=== PATIENT | female | born 1950 | race Caucasian/White ===

== ENCOUNTER 2022-11-07 15:14 | Emergency (ER) | payer OTHER, SELFPAY ==
[2022-11-07 15:15] VITALS: BP 183/57; PULSE 84; RESP 16; TEMP 36.4; O2SAT 98; BMI 21.6
--- NOTE | 2022-11-07 15:31 | EKG12_ITS ---
Test Reason : Blood Pressure : / mmHG Vent. Rate : 077 BPM Atrial Rate : 077 BPM P-R Int : 166 ms QRS Dur : 084 ms QT Int : 382 ms P-R-T Axes : 071 012 043 degrees QTc Int : 432 ms Normal sinus rhythm Normal ECG Confirmed by CASANDRA NI, GENTRY ([id number]), web editor ANNAMARIA CASILLAS ([id number]) on 11/10/2022 10:27:09 AM Referred By: VIKTORIA Confirmed By:GENTRY GUAJARDO MD
--- NOTE | 2022-11-07 15:32 | EDS_ITS ---
HPI History of Present Illness Chief Complaint: Abd Pain Informant: patient Onset/Context/Timing Onset: Days (4 days) Context: Gradual Onset Timing: Waxes and wanes Current Severity: Mild Maximum Severity: Moderate Narrative Narrative: Patient presents with a 4-day history of waxing and waning epigastric pain/pressure. She reports having a lot of gas both belching and passing from her rectum. She reports intermittent nausea and vomiting and today has been unable to keep anything down. She reports having some intermittent chills but did not measure her temperature. PFSH PFSH Medical History no medical history no medical history Home Medications promethazine 25 mg tablet 25 mg PO TID PRN nausea and vomiting #14 tabs 12/01/19 [Rx Last Taken Unknown] omeprazole magnesium 20 mg tablet,delayed release (Prilosec OTC) 20 mg PO DAILY #20 tabs 11/07/22 [Rx Last Taken Unknown] ondansetron 4 mg disintegrating tablet 4 mg PO Q8H PRN nausea and vomiting #10 tabs 11/07/22 [Rx Last Taken Unknown] Allergy/AdvReac Type Severity Reaction Status Date / Time No Known Allergies Allergy Verified 11/07/22 15:15 Surgical History History of Social History Smoking Status: Never smoker alcohol intake: never ROS ROS ED Constitutional Constitutional ED: Reports chills; Denies fever(s) Eyes Eyes: Denies change in vision or discharge from eye(s) ENT ENT ED: Denies discharge from eye(s), rhinorrhea or sore throat Cardiovascular Cardiovascular: Denies chest pain or palpitations Respiratory/Chest Respiratory/Chest: Denies cough or dyspnea Gastrointestinal Gastrointestinal: Reports abdominal pain, nausea and vomiting; Denies diarrhea Genitourinary Genitourinary ED: Denies difficulty urinating or dysuria Musculoskeletal Musculoskeletal: Denies back pain or extremity pain Integumentary Denies Abrasions or rash Neurologic Neurologic: Denies headache(s) or weakness Psychiatric Psychiatric: Denies anxiety or depression Allergic/Immunologic Allergic/Immunologic ED: Denies lip swelling or urticaria EXAM Physical Exam Const Vital Signs: 11/07/22 15:15 Temperature 97.6 F L Temperature Source Temporal Pulse Rate 84 Respiratory Rate 16 Blood Pressure 183/57 H Blood Pressure Mean 99 Pulse Ox 98 Oxygen Delivery Method Room Air Positive well nourished and well developed General Appearance ED: well developed HEENT Reports normocephalic and head/scalp atraumatic Eyes PERRL and EOMs intact bilaterally Neck supple Chest Wall inspection of chest normal and palpation of chest normal Resp normal respiratory effort and clear to auscultation bilaterally Cardio regular rate and regular rhythm GI GI Narrative: Mild epigastric tenderness palpation. No guarding or rebound. Hypoactive bowel sounds are present. Palpation: soft Extremity normal to inspection Neuro oriented x3 and no sensory deficits noted Sensorium / Orientation: alert Motor Exam: strength 5/5 throughout Psych mental status grossly normal Skin no rashes or lesions noted MDM MDM MDM Narrative Medical decision making narrative: Patient given IV fluids along with a dose of Zofran and Protonix. Lab work obtained along with EKG. Lab Data Attestation: I reviewed the patient's lab results. Labs: Laboratory Results - last 24 hr 11/07/22 11/07/22 15:46 15:46 WBC 5.7 RBC 4.60 Hgb 13.7 Hct 41.1 MCV 89.3 MCH 29.8 MCHC 33.3 RDW Std Deviation 39.7 RDW Coeff of Yue 12.2 Plt Count 200 MPV 10.2 Immature Gran % (Auto) 0.400 Neut % (Auto) 79.7 H Lymph % (Auto) 15.1 L [place] % (Auto) 4.2 Eos % (Auto) 0.2 Baso % (Auto) 0.4 Absolute Neuts (auto) 4.6 Absolute Lymphs (auto) 0.86 Nucleated RBC % 0 Sodium 137 Potassium 3.7 Chloride 103 Carbon Dioxide 27.0 Anion Gap 7 BUN 8 Creatinine 0.61 Estim Creat Clear Calc 50.91 Est GFR (MDRD) Af Amer 125 Est GFR (MDRD) Non-Af 103 BUN/Creatinine Ratio 13.2 Glucose 121 H Calcium 9.1 Total Bilirubin 0.90 Direct Bilirubin 0.23 AST 29 ALT 45 Alkaline Phosphatase 56 Troponin I High Sens 16 Total Protein 7.8 Albumin 4.0 Globulin 3.8 Lipase 119 EKG Initial EKG: Attestation: I personally reviewed and interpreted this EKG as follows: Interpretation: Sinus Rhythm (Sinus at 77 with no acute ischemia.) Treatment and Re-Evaluation Narrative: Patient has focal epigastric pain. Lab work was obtained to ensure no acute abnormalities in blood work including evidence of cholecystitis or pancreatitis. EKG and troponin were obtained to ensure no atypical presentation of cardiac disease. Repeat evaluation patient resting comfortably. Nausea is improved. CBC is unremarkable. Chemistry studies are normal. LFTs and lipase normal. Troponin is normal at 16. EKG reveals no evidence of acute ischemia. Given the patient's symptoms I do believe she likely has gastritis or possibly an early ulcer. She will be treated with Prilosec and Zofran. Discharge Plan Triage Chief Complaint: Abd Pain ED Provider: Serina Oviedo Dx/Rx/DC Orders Clinical Impression: Gastritis, Nausea & vomiting Instructions: ED Gastritis (Adult), ED Vomiting (Adult) Prescriptions: New ondansetron 4 mg tablet,disintegrating 4 mg PO Q8H PRN (Reason: nausea and vomiting) Qty: 10 0RF omeprazole magnesium [Prilosec OTC] 20 mg tablet,delayed release (DR/EC) 20 mg PO DAILY Qty: 20 0RF No Action promethazine 25 mg tablet 25 mg PO TID PRN (Reason: nausea and vomiting) Qty: 14 0RF Primary Care Provider: Care Physician,No Primary Referrals: Anthony Cornejo MD [Med Staff - Insulation Technician] - 1-2 Weeks Care Physician,No Primary [Primary Care Provider] - Disposition Disposition: Home, Self Care
[2022-11-07] MEDS: Ondansetron 4 MG/2 ML Vial IV (15:48)
[2022-11-07] MEDS: 0.9% Normal Saline 1,000 ML 150 ML IV (15:51)
[2022-11-07 16:08] LABS: Absolute Lymphocyte Count 0.86 X10^3/uL (0.83-4.51); Absolute Neutrophil Count 4.6 X10^3/uL (2.0-7.7); Basophil# 0.02 X10^3/uL; Basophil% 0.4 % (0-1); Eosinophil# 0.01 X10^3/uL; Eosinophils% 0.2 % (0-5); Hematocrit 41.1 % (37-47); Hemoglobin 13.7 g/dL (12.0-15.0); Lymphocyte # 0.86 X10^3/ul (0.83-4.51); Lymphocyte % 15.1 % (19-41); Mean Corp Hgb Conc 33.3 g/dL (32-36); Mean Corpuscular Hgb 29.8 pg (27.0-32.0); Mean Corpuscular Volume 89.3 fL (81-99); Mean Platelet Vol. 10.2 fl (6.2-12.0); Monocyte# 0.24 X10^3/uL; Monocyte% 4.2 % (0-10); NRBC Flagged by Analyzer 0 % (0-5); Neutrophil # 4.55 X10^3/uL (2.7-7.7); Neutrophil % 79.7 % (47-70); Platelet Count 200 K/mm3 (150-450); RBC Distribution Width CV 12.2 % (11.6-14.6); RBC Distribution Width SD 39.7 fl (35.1-43.9); White Blood Count 5.7 K/mm3 (4.4-11.0)
[2022-11-07 16:32] LABS: AST(SGOT) 29 U/L (15-37); Alanine Aminotransfer ALT/SGPT 45 U/L (13-56); Alkaline Phosphatase 56 U/L (45-117); Anion Gap 7 (5-15); BUN 8 mg/dL (7-18); BUN/Creat Ratio 13.2 RATIO (10-20); Bilirubin, Direct 0.23 mg/dL (0.00-0.30); Calcium,Total 9.1 mg/dL (8.5-10.1); Chloride 103 mmol/L (98-107); Creatinine, Serum 0.61 mg/dL (0.55-1.02); EST Glomerular Filtration Rate 103 mL/min (>60); Est Glom Filt Rate - Afr Amer 125 mL/min (>60); Estimated Creatinine Clearance 50.91 ml/min; Globulin 3.8 g/dL (2.2-4.2); Glucose 121 mg/dL (74-106); Lipase 119 U/L (73-393); Potassium 3.7 mmol/L (3.5-5.1); Protein, Total 7.8 g/dL (6.4-8.2); Sodium Level 137 mmol/L (136-145); Troponin-I HS 16 pg/mL (3.0-54.0)
[2022-11-07 17:04] VITALS: BP 148/45; PULSE 78; RESP 16; O2SAT 98
== END 2022-11-07 17:04 | disposition home or self-care (01) ==
PROVIDERS: Emergency Provider Emergency Medicine; Visit Provider Emergency Medicine
DX: K29.70 Gastritis, unspecified, without bleeding (principal); R11.2 Nausea with vomiting, unspecified
CPT/HCPCS: 80048; 80076; 83690; 84484; 85025; 93005; 96365; 96375; 99283; J7030; A4216; J2405

== ENCOUNTER 2023-05-03 08:28 | Emergency (ER) | payer OTHER, SELFPAY ==
[2023-05-03 08:30] VITALS: BP 157/73; PULSE 69; RESP 18; TEMP 35.8; O2SAT 100; BMI 21.7
--- NOTE | 2023-05-03 08:43 | CT_ITS ---
INDICATION: Weakness EXAMINATION: CT BRAIN - CT Head or Brain W/O Contrast Injection TECHNIQUE: Multiple axial images were obtained of the head without intravenous contrast. A radiation dose optimization technique was used for this scan. IV Contrast dosage and agent: None. RADIATION DOSAGE (If Supplied By Facility): CTDIvol = ( 44.99 ) mGy, DLP = ( 779.24 ) mGycm COMPARISON: No prior examinations are available for comparison. FINDINGS: BRAIN PARENCHYMA: No intra- or extra-axial hemorrhage. No evidence of acute infarct. No intracranial mass or mass effect. There is preservation of the raines/white matter interface. Small low-density area in the inferior left basal ganglia prominent vascular space. Small dural based) calcification. Posterior fossa structures are unremarkable. CSF SPACES: Appropriate for age. No hydrocephalus. Basal cisterns are patent. CALVARIUM, SKULL BASE, PARANASAL SINUSES AND MASTOID AIR CELLS: Clear. No discrete lytic or blastic abnormalities. ORBITS: The globes are grossly intact. ASPECTS Score for Acute Strokes: 10 CT/Brain/Head without Contrast IMPRESSION: Negative Brain CT without contrast. Electronically Signed: Deng Velasquez MD at 10:26 EDT ,
--- NOTE | 2023-05-03 08:44 | EX.ED.DYSGE1 ---
HPI History of Present Illness Chief Complaint: Fatigue Informant: patient and spouse/S.O. Narrative Narrative: Patient had an episode at home where she felt lightheaded as if she might pass out. She may have had some component of balance. No chest pain or palpitations. No focal weakness. She states she just feels generally kind of weak and tired now. No lateralizing symptoms. She did not have nausea and vomiting. After the event she was passing a lot of gas but has no abdominal pain. She has had no diarrhea. She has not been sick recently. She felt well when she got up. She does feel better now. She was getting ready for [employer] when this happened. She has no chronic medical conditions No routine medications No allergies Past surgery was Non-smoker nondrinker lives at [facility] Home Medications promethazine 25 mg tablet 25 mg PO TID PRN nausea and vomiting #14 tabs 12/01/19 [Rx Last Taken Unknown] omeprazole magnesium 20 mg tablet,delayed release (Prilosec OTC) 20 mg PO DAILY #20 tabs 11/07/22 [Rx Last Taken Unknown] ondansetron 4 mg disintegrating tablet 4 mg PO Q8H PRN nausea and vomiting #10 tabs 11/07/22 [Rx Last Taken Unknown] Allergy/AdvReac Type Severity Reaction Status Date / Time No Known Allergies Allergy Verified 11/07/22 15:15 Surgical History History of Social History Smoking Status: Never smoker alcohol intake: never ROS ROS ED ROS Narrative A complete review of systems was performed and is negative except as documented in the history of present illness. Some specific details below. Constitutional: No recent fevers or chills. No rigors. Patient has not generally felt ill. EYE: No discharge, visual complaints, or pain. No darkening of vision or portions of aging missing. No bright lights seen. ENT: No difficulty swallowing. No swelling. No sinus pressure or pain. No nasal discharge. No change in hearing. No ear pain. CV: No chest pain, pressure or aching. No palpitations or irregular beats. Patient did feel a little bit presyncopal but did not actually pass out. Respiratory: No trouble breathing. No cough. No wheezing. No sputum production. No pain with breathing. GI: No abdominal pain. No nausea vomiting diarrhea. No blood in stool. : No frequency dysuria or hematuria. Musculoskeletal: No recent trauma. No pains. No swelling. Skin: No rash. Nondiaphoretic now or during event. Neuro: No focal weakness or numbness. He does feel just globally weak at this time. No difficulty with speaking. No difficulty understanding speech. No visual loss. Please see history of present illness also. Endocrine: No polyuria or polydipsia. EXAM Physical Exam Narrative Exam Narrative: CONSTITUTIONAL: Patient is nontoxic in appearance. The patient looks comfortable. Work of breathing looks normal. Color looks normal. HEENT: No notable trauma. Mucous membranes look minimally dry. No sinus tenderness. EYES: No conjunctival injection. No proptosis. No pain with range of motion or limitation of range of motion. No pallor. NECK: No meningismus. No JVD. CARDIOVASCULAR: Regular rate. Regular rhythm. No notable murmur. No JVD. I hear no ectopy. She appears to have a normal sinus rhythm on the monitor with a rate of about 65. No ectopy is seen. RESPIRATORY: No respiratory distress. Breathing is unlabored. No wheezes. No rhonchi. No rales. No pain with a deep breath. Saturations are normal at 100% on room air showing no hypoxia. GASTROINTESTINAL: Not distended. Bowel sounds are normal. No tenderness. No guarding. No rebound. No palpable mass. No bruit. GENITOURINARY: No tenderness over the bladder. No CVA tenderness. MUSCULOSKELETAL: Atraumatic. No peripheral edema. No cord. No tenderness along the deep venous system. No asymmetry. NEUROLOGICAL: Patient is alert and oriented. No focal deficit noted. NIH stroke scale is 0. She can turn left right up and down. There is no actual dizziness or spinning sensation. There is no discoordination. Her only symptom is just feeling overall weak. She does not feel like she is going to pass out now though. Her symptoms are better than they were at home. SKIN: No noted rashes. No diaphoresis. No vesicles noted. No notable pallor. PSYCHIATRIC: Patient is calm. Mood is appropriate. Const Vital Signs: 05/03/23 08:30 05/03/23 09:39 05/03/23 09:39 Temperature 96.4 F L Temperature Source Temporal Pulse Rate 69 59 L Respiratory Rate 18 13 Respiratory Effort Normal Non-Labored Respiratory Pattern Normal Blood Pressure 157/73 H 177/57 H Blood Pressure Mean 101 97 Pulse Ox 100 96 Oxygen Delivery Method Room Air Room Air MDM MDM MDM Narrative Medical decision making narrative: Patient CBC shows no marked abnormalities. She had minimal decreased white count which is nonspecific. This could be related to a viral illness also. Patient's electrolytes show no acute process. Patient's troponin is negative. My independent interpretation of the patient's CT of the head without contrast shows no mass or acute process. No bleeding or obvious stroke. Final reading is negative CT of the brain without contrast. Patient walked. She is stable and steady. She states she just feels like she has low energy and is a little bit weak. Its not focal weakness. Its not vertigo. Its not instability or discoordination. It certainly possible she may have a early viral illness. With the overall sense of weakness and slight low white count this does support that. But at this point she is relatively lower risk for stroke. She has no symptom that matches stroke. Her CT is normal. Her only symptom here is that she just feels a little bit weak. They want to go home and I think that is reasonable. We did discuss reasons to return. Lab Data Attestation: I reviewed the patient's lab results. Labs: Laboratory Results - last 24 hr 05/03/23 09:17 WBC 4.1 L RBC 4.38 Hgb 13.2 Hct 39.6 MCV 90.4 MCH 30.1 MCHC 33.3 RDW Std Deviation 41.2 RDW Coeff of Yue 12.4 Plt Count 178 MPV 10.0 Immature Gran % (Auto) 0.200 Neut % (Auto) 66.3 Lymph % (Auto) 24.5 [place] % (Auto) 7.3 Eos % (Auto) 1.0 Baso % (Auto) 0.7 Absolute Neuts (auto) 2.7 Absolute Lymphs (auto) 1.01 Nucleated RBC % 0 Sodium 139 Potassium 4.2 Chloride 108 H Carbon Dioxide 28.0 Anion Gap 3 L BUN 11 Creatinine 0.78 Estim Creat Clear Calc 50.18 Est GFR (MDRD) Af Amer 94 Est GFR (MDRD) Non-Af 78 BUN/Creatinine Ratio 14.2 Glucose 108 H Calcium 9.0 Troponin I High Sens 4 Radiography Diagnostic Testing: Clinical Impression(s) from Imaging Studies Brain CT 05/03/23 08:43 IMPRESSION: Negative Brain CT without contrast. Electronically Signed: Deng Velasquez MD at 10:26 EDT , Chest X-Ray 05/03/23 09:38 IMPRESSION: No radiographic evidence of acute cardiopulmonary disease. Electronically Signed: Deng Velasquez MD at 10:27 EDT , EKG Initial EKG: Comments: I independent interpretation the patient's EKG done for generalized weakness shows normal sinus rhythm with a rate of about 59. No ectopy. No acute ST elevation or depression. CT interval, QRS duration and QTc are normal. Discharge Plan Triage Chief Complaint: Fatigue ED Provider: Seth Walsh Dx/Rx/DC Orders Clinical Impression: Generalized weakness, Leukopenia Instructions: ED Weakness (Uncertain Cause) Prescriptions: No Action promethazine 25 mg tablet 25 mg PO TID PRN (Reason: nausea and vomiting) Qty: 14 0RF ondansetron 4 mg tablet,disintegrating 4 mg PO Q8H PRN (Reason: nausea and vomiting) Qty: 10 0RF omeprazole magnesium [Prilosec OTC] 20 mg tablet,delayed release (DR/EC) 20 mg PO DAILY Qty: 20 0RF Primary Care Provider: Care Physician,No Primary Referrals: Latasha Reid MD [Med Staff - Medical Corps Officer] - 3-5 Days if not improving Care Physician,No Primary [Primary Care Provider] - Activity Restrictions/Additional Instructions: Follow-up with your primary physician or referral as above. Disposition Disposition: Home, Self Care
[2023-05-03 09:27] LABS: Absolute Lymphocyte Count 1.01 X10^3/uL (0.83-4.51); Absolute Neutrophil Count 2.7 X10^3/uL (2.0-7.7); Basophil# 0.03 X10^3/uL; Basophil% 0.7 % (0-1); Eosinophil# 0.04 X10^3/uL; Hematocrit 39.6 % (37-47); Hemoglobin 13.2 g/dL (12.0-15.0); Lymphocyte # 1.01 X10^3/ul (0.83-4.51); Lymphocyte % 24.5 % (19-41); Mean Corp Hgb Conc 33.3 g/dL (32-36); Mean Corpuscular Hgb 30.1 pg (27.0-32.0); Mean Corpuscular Volume 90.4 fL (81-99); Monocyte% 7.3 % (0-10); NRBC Flagged by Analyzer 0 % (0-5); Neutrophil # 2.73 X10^3/uL (2.7-7.7); Neutrophil % 66.3 % (47-70); Platelet Count 178 K/mm3 (150-450); RBC Distribution Width CV 12.4 % (11.6-14.6); RBC Distribution Width SD 41.2 fl (35.1-43.9); Red Blood Count 4.38 M/mm3 (4.2-5.4); White Blood Count 4.1 K/mm3 (4.4-11.0)
--- NOTE | 2023-05-03 09:38 | RAD_ITS ---
INDICATION: Weakness. EXAMINATION/TECHNIQUE: X-RAY - XR Chest 1 View COMPARISON: No prior examinations are available for comparison. FINDINGS: LINES/DEVICES: None. LUNGS: No consolidation, edema or effusion. No pneumothorax. MEDIASTINUM AND CARDIOVASCULAR STRUCTURES: Cardiac silhouette not enlarged. Central airways and mediastinal contour are unremarkable. BONES AND SOFT TISSUES: Unremarkable. RAD/Chest 1 View (Portable) IMPRESSION: No radiographic evidence of acute cardiopulmonary disease. Electronically Signed: Deng Velasquez MD at 10:27 EDT ,
[2023-05-03 09:39] VITALS: BP 177/57; PULSE 59; RESP 13; O2SAT 96
[2023-05-03] MEDS: 0.9% Normal Saline 1,000 ML 1000 ML IV (09:48)
[2023-05-03 09:56] LABS: Anion Gap 3 (5-15); BUN 11 mg/dL (7-18); BUN/Creat Ratio 14.2 RATIO (10-20); Chloride 108 mmol/L (98-107); Creatinine, Serum 0.78 mg/dL (0.55-1.02); EST Glomerular Filtration Rate 78 mL/min (>60); Est Glom Filt Rate - Afr Amer 94 mL/min (>60); Estimated Creatinine Clearance 50.18 ml/min; Glucose 108 mg/dL (74-106); Potassium 4.2 mmol/L (3.5-5.1); Sodium Level 139 mmol/L (136-145); Troponin-I HS 4 pg/mL (3.0-54.0)
[2023-05-03 11:18] VITALS: O2SAT 99
== END 2023-05-03 12:59 | disposition home or self-care (01) ==
PROVIDERS: Emergency Provider Emergency Medicine; Visit Provider Emergency Medicine
DX: R53.83 Other fatigue (principal); R53.1 Weakness; D72.819 Decreased white blood cell count, unspecified
CPT/HCPCS: 70450; 71045; 80048; 84484; 85025; 93005; 96360; 99284; J7030

== ENCOUNTER 2023-11-24 05:48 | Emergency (ER) | payer OTHER, SELFPAY ==
[2023-11-24 05:48] VITALS: BP 187/59; PULSE 68; RESP 16; TEMP 36.9; O2SAT 98
--- NOTE | 2023-11-24 06:13 | EDS_ITS ---
HPI HPI - GI History of Present Illness Chief Complaint: Nausea/Vomiting/Diarrhea Informant: patient and spouse/S.O. Nausea/Vomiting/Emesis GI Symptom: Positive for Nausea and Vomiting Onset: Yesterday Quality: Positive for Nonbilious Severity: Severe Diarrhea/Melena/Hematochezia GI Symptom: Positive for Diarrhea; Negative for Melena or Hematochezia Onset: Yesterday Stool Quality: Positive for Loose and Watery Episodes: 10 Associated Symptoms Associated Symptoms: Negative for Dysuria, Frequency or Hematuria Narrative Narrative: Patient states since yesterday afternoon, for about the past 12-15 hours, she has been having nausea, vomiting, diarrhea. No hematochezia or hematemesis. No melena. No fevers or chills that she knows of, just feeling malaise and fatigue. No known sick contacts, no one else in the household is ill right now. No travel out of the area/region. No recent antibiotics for anything. No history of C. difficile. No suspicious food intake. She states for the day or 2 prior to this, she was having some intermittent lower abdominal cramping and gas but since the vomiting and diarrhea started, she has had no abdominal pain. She denies any cough or shortness of breath or chest discomfort. She has been urinating without any issues. Denies any associated back pain or other associated symptoms. PFSH PFSH Medical History no medical history no medical history Home Medications promethazine 25 mg tablet 25 mg PO TID PRN nausea and vomiting #14 tabs 12/01/19 [Rx Last Taken Unknown] omeprazole magnesium 20 mg tablet,delayed release (Prilosec OTC) 20 mg PO DAILY #20 tabs 11/07/22 [Rx Last Taken Unknown] ondansetron 4 mg disintegrating tablet 4 mg PO Q8H PRN nausea and vomiting #10 tabs 11/07/22 [Rx Last Taken Unknown] ondansetron 4 mg disintegrating tablet 8 mg (2 x 4 mg) PO Q8H PRN PRN Nausea #20 tabs 11/24/23 [Rx Last Taken Unknown] Allergy/AdvReac Type Severity Reaction Status Date / Time No Known Allergies Allergy Verified 11/24/23 05:49 Surgical History History of Social History Smoking Status: Never smoker alcohol intake: never ROS ROS ED Constitutional Constitutional ED: Reports malaise; Denies chills or fever(s) Eyes Eyes: Denies change in vision or diplopia ENT ENT ED: Denies rhinorrhea or sore throat Cardiovascular Cardiovascular: Denies chest pain or palpitations Respiratory/Chest Respiratory/Chest: Denies cough or dyspnea Gastrointestinal Gastrointestinal: Reports diarrhea, nausea and vomiting; Denies abdominal pain or melena Genitourinary Genitourinary ED: Denies dysuria or hematuria Musculoskeletal Musculoskeletal: Denies back pain or neck pain Integumentary Denies abscess or rash Neurologic Neurologic: Denies headache(s), paresthesias or weakness Psychiatric Psychiatric: Denies anxiety or suicidal thoughts EXAM Physical Exam Const Vital Signs: 11/24/23 05:48 11/24/23 06:31 11/24/23 07:01 Temperature 98.4 F Temperature Source Temporal Pulse Rate 68 79 Respiratory Rate 16 17 Blood Pressure 187/59 H 171/59 H 150/64 H Blood Pressure Mean 101 96 92 Pulse Ox 98 98 Oxygen Delivery Method Room Air Room Air Positive well nourished and well developed General Appearance ED: well developed and NAD HEENT Reports moist mucous membranes normocephalic and atraumatic Eyes PERRL and EOMs intact bilaterally Neck full ROM and supple Resp normal respiratory effort and clear to auscultation bilaterally Cardio regular rate, regular rhythm and no murmurs GI non-tender and non-distended Auscultation: hyperactive bowel sounds Palpation: soft Back/Spine no CVA tenderness General Back: other FROM Extremity normal to inspection General Extremety ED: Negative for edema, pulses abnormal or tenderness General Extremity: Negative for edema or pulses abnormal Neuro oriented x3, CN's II-XII intact bilaterally and no sensory deficits noted Sensorium / Orientation: awake and alert Motor Exam: strength 5/5 throughout Skin no rashes or lesions noted and no wounds MDM MDM MDM Narrative Medical decision making narrative: Labs are very reassuring, she does have a mild hyponatremia and hypokalemia likely due to mild dehydration and GI losses. She was given a liter of saline and Zofran and felt much better on reevaluation. No abdominal pain very benign abdomen. Her initial blood pressure was 187/59, on reevaluation after feeling better 150/64 and the rest of her vital signs are normal. She is tolerating oral fluids, prescribe Zofran for what is most likely a viral gastroenteritis. She has no significant risk factors for bacterial etiology right now nor is she having any concerning clinical red flags such as pain, hematochezia. Therefore at this time I recommend supportive care and close outpatient follow-up as needed. She is comfortable with that plan. Lab Data Attestation: I reviewed the patient's lab results. Labs: Laboratory Results - last 24 hr 11/24/23 06:27 WBC 5.7 RBC 4.31 Hgb 12.9 Hct 36.5 L MCV 84.7 MCH 29.9 MCHC 35.3 RDW Std Deviation 36.4 RDW Coeff of Yue 11.9 Plt Count 192 MPV 9.6 Immature Gran % (Auto) 0.400 Neut % (Auto) 70.5 H Lymph % (Auto) 22.8 [place] % (Auto) 5.6 Eos % (Auto) 0.2 Baso % (Auto) 0.5 Absolute Neuts (auto) 4.0 Absolute Lymphs (auto) 1.30 Nucleated RBC % 0 Sodium 127 L Potassium 3.4 L Chloride 97 L Carbon Dioxide 24.0 Anion Gap 6 BUN 6 L Creatinine 0.46 L Est GFR (MDRD) Af Amer 172 Est GFR (MDRD) Non-Af 142 BUN/Creatinine Ratio 13.1 Glucose 114 H Calcium 8.8 Discharge Plan Triage Chief Complaint: Nausea/Vomiting/Diarrhea ED Provider: Jose Slade Dx/Rx/DC Orders Clinical Impression: Gastroenteritis, Mild dehydration Instructions: Viral Gastroenteritis Prescriptions: New ondansetron [ondansetron] 4 mg tablet,disintegrating 8 mg PO Q8H PRN PRN (Reason: Nausea) Qty: 20 0RF Continued omeprazole magnesium [Prilosec OTC] 20 mg tablet,delayed release (DR/EC) 20 mg PO DAILY Qty: 20 0RF No Action promethazine 25 mg tablet 25 mg PO TID PRN (Reason: nausea and vomiting) Qty: 14 0RF ondansetron 4 mg tablet,disintegrating 4 mg PO Q8H PRN (Reason: nausea and vomiting) Qty: 10 0RF Primary Care Provider: Care Physician,No Primary Referrals: Doctor,Your [Non-Staff] - 3-5 Days if not improving Disposition Disposition: Home, Self Care
[2023-11-24] MEDS: Ondansetron 4 MG/2 ML Vial IV (06:26)
[2023-11-24] MEDS: 0.9% Normal Saline (1000mL) 1,000 ML 1000 ML IV (06:26)
[2023-11-24 06:31] VITALS: BP 171/59
[2023-11-24 06:33] LABS: Basophil# 0.03 X10^3/uL; Basophil% 0.5 % (0-1); Eosinophil# 0.01 X10^3/uL; Eosinophils% 0.2 % (0-5); Hematocrit 36.5 % (37-47); Hemoglobin 12.9 g/dL (12.0-15.0); Lymphocyte % 22.8 % (19-41); Mean Corp Hgb Conc 35.3 g/dL (32-36); Mean Corpuscular Hgb 29.9 pg (27.0-32.0); Mean Corpuscular Volume 84.7 fL (81-99); Mean Platelet Vol. 9.6 fl (6.2-12.0); Monocyte# 0.32 X10^3/uL; Monocyte% 5.6 % (0-10); NRBC Flagged by Analyzer 0 % (0-5); Neutrophil # 4.02 X10^3/uL (2.7-7.7); Neutrophil % 70.5 % (47-70); Platelet Count 192 K/mm3 (150-450); RBC Distribution Width CV 11.9 % (11.6-14.6); RBC Distribution Width SD 36.4 fl (35.1-43.9); Red Blood Count 4.31 M/mm3 (4.2-5.4); White Blood Count 5.7 K/mm3 (4.4-11.0)
[2023-11-24 06:47] LABS: Anion Gap 6 (5-15); BUN 6 mg/dL (7-18); BUN/Creat Ratio 13.1 RATIO (10-20); Calcium,Total 8.8 mg/dL (8.5-10.1); Chloride 97 mmol/L (98-107); Creatinine, Serum 0.46 mg/dL (0.55-1.02); EST Glomerular Filtration Rate 142 mL/min (>60); Est Glom Filt Rate - Afr Amer 172 mL/min (>60); Glucose 114 mg/dL (74-106); Potassium 3.4 mmol/L (3.5-5.1); Sodium Level 127 mmol/L (136-145)
[2023-11-24 07:01] VITALS: BP 150/64; PULSE 79; RESP 17; O2SAT 98
[2023-11-24 07:31] VITALS: BP 143/78; PULSE 64; RESP 16; TEMP 36.4; O2SAT 99
== END 2023-11-24 07:33 | disposition home or self-care (01) ==
PROVIDERS: Emergency Provider Emergency Medicine; Visit Provider Emergency Medicine
DX: K52.9 Noninfective gastroenteritis and colitis, unspecified (principal); E86.0 Dehydration
CPT/HCPCS: 80048; 85025; 96361; 96374; 99283; J7030; A4216; J2405